=== PATIENT | male | born 1975 | race Caucasian/White ===

== ENCOUNTER 2017-04-04 05:57 | Day surgery (SDC) | payer BC ==
[2017-04-04] MEDS ORDERED: DIPRIVAN 200 MG/20 ML IV ONE (05:58)
[2017-04-04] MEDS ORDERED: Versed 2 MG/2 ML Injection IV ONE (05:58)
[2017-04-04] MEDS ORDERED: Lactated Ringers 1,000 ML IV SCH (06:00)
[2017-04-04] MEDS ORDERED: Xopenex 1.25 MG/0.5 ML UD NEBULE IH ONE (06:46)
[2017-04-04] MEDS ORDERED: Sodium Chloride 3 ML UD NEBULES IH SCH (07:00)
[2017-04-04 08:14] VITALS: BP 151/67; PULSE 65; O2SAT 98
--- NOTE | 2017-04-04 08:59 | OP ---
SURGERY DATE/TIME: 04/04/2017714 PREOPERATIVE DIAGNOSIS: Epigastric abdominal pain. POSTOPERATIVE DIAGNOSES: 1) Mild gastritis. 2) Gastric polyps. PROCEDURE: EGD. SURGEON: Bobby Dumas M.D. ANESTHESIA: MAC by Salvador Bryson CRNA. ESTIMATED BLOOD LOSS: Minimal. SPECIMENS: There are two cold forceps biopsies from the gastric antrum for Helicobacter pylori testing and two cold forceps polypectomies of gastric polyps. DESCRIPTION OF PROCEDURE: After informed written consent was obtained, the patient was taken to the endoscopy suite. He underwent monitored anesthesia and a bite block was inserted. The endoscope was inserted into the posterior oropharynx and under direct visualization the esophagus was traversed. The stomach had a normal rugated gastric mucosa with small appreciable polypoid lesions. There were mild gastritis-type changes with no focal ulcerations or bleeding in gastric antrum. The pylorus was traversed and the first and second portions of the duodenum was within normal limits. The gastric antrum sampled x2 with cold forceps with minimal blood loss. Upon further withdrawal two commercial representative gastric polyps were removed with hot forceps. The first was a small flat one which was removed in its entirety and sent for testing. The other was slightly larger, was bulbous and quite firm and difficult to grasp with the forceps but sample was taken from this lesion and sent for testing further appeared benign. The remainder the exam was within normal limits upon withdrawal.
== END 2017-04-04 08:59 | disposition home or self-care (01) ==
LOC: SDC 05:57
PROVIDERS: ATTEND Family Medicine
PROC: 0DB78ZX Excision of Stomach, Pylorus, Via Natural or Artificial Opening Endoscopic, Diagnostic (ICD-10-PCS; principal; 2017-04-04)
PROC: 0DB68ZX Excision of Stomach, Via Natural or Artificial Opening Endoscopic, Diagnostic (ICD-10-PCS; 2017-04-04)
DX: K29.70 Gastritis, unspecified, without bleeding (principal); K31.7 Polyp of stomach and duodenum; K21.9 Gastro-esophageal reflux disease without esophagitis
CPT/HCPCS: 00740; 36415; 88305; J2250; J2704

== ENCOUNTER 2023-12-08 14:54 | Emergency (ER) | payer BC ==
--- NOTE | 2023-12-08 14:56 | ERPHSYRPT ---
- History of Present Illness Time Seen by Provider: 12/08/23 14:56 Historian: patient Exam Limitations: no limitations Physician History: This is an obese 48-year-old white male who is a patient of Dr. Jimenez and presents with intermittent episodes of substernal central chest pressure and burning with radiation into the epigastric region and typically after eating. He states that the symptoms have been going on for about a year. Symptoms have been worse in the last week. Patient has no diagnosed coronary artery disease. He does not smoke. He has no documented hyperlipidemia. He has never seen a baby nurse. His gallbladder is still in place. Patient states that he has been told he has a hiatal hernia. Rarely has the pain got into his back but he does not recall an episode or to doing that. He has not noticed dark urine or acholic stools or jaundice of his skin. Patient ate tacos last night and eggs, sausage, hashbrowns this morning Timing/Duration: intermittent (Intermittent episodes over the last year), worse (Symptoms worse in the last week) Quality: burning, pressure Location: substernal, central Chest Pain Radiation: abdomen (Gastrium) Severity of Pain-Max: mild Severity of Pain-Current: mild Modifying Factors: Improves With: eating (Worsens), change in position Associated Symptoms: abdominal pain, No nausea (Gastric), No vomiting, No shortness of breath Prior Chest Pain/Cardiac Workup: no prior cardiac workup Nitro Today/Relief: no nitro taken today Aspirin Treatment Today: no aspirin today Allergies/Adverse Reactions: No Known Drug Allergies Allergy (Verified 12/08/23 14:55) Home Medications: hydroCHLOROthiazide [Hydrochlorothiazide] 25 mg PO DAILY 04/13/14 [History] Citalopram Hydrobromide [Celexa] 40 mg PO DAILY PRN 12/08/23 [History] Hx Tetanus, Diphtheria Vaccination/Date Given: No Hx Influenza Vaccination/Date Given: No Hx Pneumococcal Vaccination/Date Given: No Travel Risk - International Travel Have you traveled outside of the country in past 3 weeks: No - Emerging Infectious Disease Are you exhibiting symptoms associated with any current EIDs: No - Review of Systems Constitutional: No Symptoms Eyes: No Symptoms Ears, Nose, & Throat: No Symptoms Respiratory: No Symptoms Cardiac: Chest Pain (Scribed as a pressure and burning after eating) Abdominal/Gastrointestinal: Abdominal Pain (Mild radiation of the chest pain into his epigastrium) Genitourinary Symptoms: No Symptoms Musculoskeletal: No Symptoms Skin: No Symptoms Neurological: No Symptoms Psychological: No Symptoms Endocrine: No Symptoms Hematologic/Lymphatic: No Symptoms Immunological/Allergic: No Symptoms All Other Systems: Reviewed and Negative - Past Medical History Pertinent Past Medical History: Yes Neurological History: No Pertinent History ENT History: No Pertinent History Cardiac History: Hypertension Respiratory History: No Pertinent History Endocrine Medical History: No Pertinent History Musculoskeletal History: No Pertinent History GI Medical History: GERD History: Other Psycho-Social History: Anxiety Male Reproductive Disorders: No Pertinent History Other Medical History: ONE KIDNEY - Past Surgical History Past Surgical History: Yes Neuro Surgical History: No Pertinent History Cardiac: No Pertinent History Respiratory: No Pertinent History Gastrointestinal: No Pertinent History Genitourinary: No Pertinent History Musculoskeletal: Other Male Surgical History: No Pertinent History Other Surgical History: left arm-nerve surgery - Social History Smoking Status: Never smoker Exposure to second hand smoke: No Drug Use: none Patient Lives Alone: No - Nursing Vital Signs Nursing Vital Signs: Initial Vital Signs Temperature 97.7 F 12/08/23 14:54 Pulse Rate 68 12/08/23 14:54 Respiratory Rate 26 H 12/08/23 14:54 Blood Pressure 134/83 12/08/23 14:54 O2 Sat by Pulse Oximetry 97 12/08/23 14:54 Pain Scale Pain Intensity 4 - Physical Exam General Appearance: no apparent distress, alert, anxiety, obese Eye Exam: PERRL/EOMI, eyes nml inspection Ears, Nose, Throat Exam: normal ENT inspection, moist mucous membranes Neck Exam: normal inspection, non-tender, supple, full range of motion Respiratory Exam: normal breath sounds, chest tenderness (Scribed as a substernal, central chest pressure burning that radiates into the epigastrium), lungs clear, airway intact, No respiratory distress Cardiovascular Exam: regular rate/rhythm, normal heart sounds, normal peripheral pulses Gastrointestinal/Abdomen Exam: soft, normal bowel sounds, tenderness (Mild epigastrium), guarding, No rebound Rectal Exam: not done Back Exam: normal inspection, normal range of motion, No CVA tenderness, No vertebral tenderness Extremity Exam: normal inspection, normal range of motion, pelvis stable Neurologic Exam: alert, oriented x 3, cooperative, traffic superintendent II-XII nml as tested, normal mood/affect, nml cerebellar function, nml station & gait, sensation nml Skin Exam: normal color, warm, dry Lymphatic Exam: No adenopathy SpO2 Interpretation: normal O2 Delivery: Room Air - Course Nursing assessment & vital signs reviewed: Yes EKG Interpreted by Me: RATE (67), Sinus Rhythm, Left Melvern Deviation (Borderline), NORMAL INTERVALS, NORMAL QRS, Other (No acute ischemic changes on today's twelve-lead EKG.) Ordered Tests: Active Orders 24 hr Category Date Time Status EKG-ER Only STAT Care 12/08/23 15:07 Active IV Insertion STAT Care 12/08/23 15:07 Active CHEST WITH CONTRAST [CT] Stat Exams 12/08/23 16:23 Completed AMYLASE Stat Lab 12/08/23 15:10 Completed CBC W DIFF Stat Lab 12/08/23 15:10 Completed CMP Stat Lab 12/08/23 15:10 Completed CULTURE,URINE Stat Lab 12/08/23 15:07 Received D-DIMER QUANTITATIVE Stat Lab 12/08/23 15:10 Completed LIPASE Stat Lab 12/08/23 15:10 Completed TROPONIN Q4H Lab 12/08/23 15:10 Completed TROPONIN Q4H Lab 12/08/23 19:15 Ordered TROPONIN Q4H Lab 12/08/23 23:15 Ordered UA W/RFX UR CULTURE Stat Lab 12/08/23 15:07 Completed Medication Summary Discontinued Medications Generic Name Dose Route Start Last Admin Trade Name Freq PRN Reason Stop Dose Admin Al Hydrox/Mg Hydrox/Simethicone Confirm 12/08/23 15:24 Mag Hydrox/Al Hydrox/Simeth 30 Ml Udcup Administered 12/08/23 15:25 Dose 30 ml .ROUTE .STK-MED ONE Sodium Chloride 500 mls @ 500 mls/hr 12/08/23 16:23 12/08/23 17:51 Sodium Chloride 0.9% 500 Ml IV 12/08/23 17:22 Infused .Q1H ONE Infusion Sodium Chloride Confirm 12/08/23 16:48 Sodium Chloride 0.9% 500 Ml Administered 12/08/23 16:49 Dose 500 mls @ ud IV .STK-MED ONE Lidocaine HCl Confirm 12/08/23 15:24 Lidocaine Hcl 2% Viscous 15 Ml Udcup Administered 12/08/23 15:25 Dose 15 ml .ROUTE .STK-MED ONE Magnesium Hydroxide 45 ml 12/08/23 15:08 12/08/23 15:25 Mag Hydrx/Alum Hyd/Simeth/Lido 45 Ml Bottle PO 12/08/23 15:09 45 ml STAT ONE Administration Pantoprazole Sodium 40 mg 12/08/23 15:16 12/08/23 15:25 Pantoprazole 40 Mg Vial IV 12/08/23 15:17 40 mg STAT ONE Administration Pantoprazole Sodium Confirm 12/08/23 15:24 Pantoprazole 40 Mg Vial Administered 12/08/23 15:25 Dose 40 mg IV .K-MED ONE Lab/Rad Data: Laboratory Result Diagrams 12/08/23 15:10 12/08/23 15:10 Laboratory Results 12/08/23 12/08/23 12/08/23 Range/Units 15:10 15:10 15:10 WBC (4.0-10.5) x10^3/uL RBC (4.1-5.6) x10^6/uL Hgb (12.5-18.0) g/dL Hct (42-50) % MCV (78-100) fL MCH (26-32) pg MCHC (32-36) g/dL RDW (11.5-14.0) % Plt Count (150-450) x10^3/uL MPV (7.5-11.0) fL Gran % (36.0-66.0) % Immature Gran % (Auto) (0.00-0.4) % Nucleat RBC Rel Count (0.00-0.1) % Eos # (Auto) (0-0.5) x10^3/uL Immature Gran # (Auto) (0.00-0.03) x10^3u/L Absolute Lymphs (auto) (1.0-4.6) x10^3/uL Absolute Monos (auto) (0.0-1.3) x10^3/uL Absolute Nucleated RBC (0.00-0.01) x10^3u/L Lymphocytes % (24.0-44.0) % Monocytes % (0.0-12.0) % Eosinophils % (0.00-5.0) % Basophils % (0.0-0.4) % Absolute Granulocytes (1.4-6.9) x10^3/uL Basophils # (0-0.4) x10^3/uL D-Dimer 0.52 H (0.0-0.50) mg/L Sodium 139 (135-145) mmol/L Potassium 3.7 (3.5-5.1) mmol/L Chloride 103 (98-107) mmol/L Carbon Dioxide 29 (22-30) mmol/L Anion Gap 11.4 (5-15) MEQ/L BUN 12 (9-20) mg/dL Creatinine 1.08 (0.66-1.25) mg/dL Estimated GFR 83.6 ML/MIN Glucose 117 H (74-106) mg/dL Calcium 9.0 (8.4-10.2) mg/dL Total Bilirubin 0.50 (0.2-1.3) mg/dL AST 39 (17-59) U/L ALT 35 (0-50) U/L Alkaline Phosphatase 81 (38-126) U/L Troponin I < 0.012 (0.000-0.033) ng/mL Serum Total Protein 7.6 (6.3-8.2) g/dL Albumin 3.9 (3.5-5.0) g/dL Amylase 73 (30-110) U/L Lipase 160 (23-300) U/L Urine Color (Yellow) Urine Appearance (Clear) Urine pH (4.6-8.0) Ur Specific [employer] (1.005-1.030) Urine Protein (Negative) Urine Glucose (UA) (Negative) mg/dL Urine Ketones (Negative) Urine Blood (Negative) Urine Nitrite (Negative) Urine Bilirubin (Negative) Urine Urobilinogen (0.2) mg/dL Ur Leukocyte Esterase (Negative) U Hyaline Cast (Auto) (0-2) /LPF Urine Microscopic RBC (0-5) /HPF Urine Microscopic WBC (0-5) /HPF Ur Epithelial Cells (None Seen) /HPF Urine Bacteria (None Seen) /HPF Urine Culture Reflexed (NO) 12/08/23 12/08/23 Range/Units 15:10 15:07 WBC 4.2 (4.0-10.5) x10^3/uL RBC 4.84 (4.1-5.6) x10^6/uL Hgb 14.2 (12.5-18.0) g/dL Hct 42.0 (42-50) % MCV 86.8 (78-100) fL MCH 29.3 (26-32) pg MCHC 33.8 (32-36) g/dL RDW 12.2 (11.5-14.0) % Plt Count 227 (150-450) x10^3/uL MPV 10.6 (7.5-11.0) fL Gran % 57.9 (36.0-66.0) % Immature Gran % (Auto) 0.2 (0.00-0.4) % Nucleat RBC Rel Count 0.0 (0.00-0.1) % Eos # (Auto) 0.04 (0-0.5) x10^3/uL Immature Gran # (Auto) 0.01 (0.00-0.03) x10^3u/L Absolute Lymphs (auto) 1.32 (1.0-4.6) x10^3/uL Absolute Monos (auto) 0.39 (0.0-1.3) x10^3/uL Absolute Nucleated RBC 0.00 (0.00-0.01) x10^3u/L Lymphocytes % 31.4 (24.0-44.0) % Monocytes % 9.3 (0.0-12.0) % Eosinophils % 1.0 (0.00-5.0) % Basophils % 0.2 (0.0-0.4) % Absolute Granulocytes 2.44 (1.4-6.9) x10^3/uL Basophils # 0.01 (0-0.4) x10^3/uL D-Dimer (0.0-0.50) mg/L Sodium (135-145) mmol/L Potassium (3.5-5.1) mmol/L Chloride (98-107) mmol/L Carbon Dioxide (22-30) mmol/L Anion Gap (5-15) MEQ/L BUN (9-20) mg/dL Creatinine (0.66-1.25) mg/dL Estimated GFR ML/MIN Glucose (74-106) mg/dL Calcium (8.4-10.2) mg/dL Total Bilirubin (0.2-1.3) mg/dL AST (17-59) U/L ALT (0-50) U/L Alkaline Phosphatase (38-126) U/L Troponin I (0.000-0.033) ng/mL Serum Total Protein (6.3-8.2) g/dL Albumin (3.5-5.0) g/dL Amylase (30-110) U/L Lipase (23-300) U/L Urine Color Yellow (Yellow) Urine Appearance Clear (Clear) Urine pH 6.5 (4.6-8.0) Ur Specific [employer] 1.015 (1.005-1.030) Urine Protein Negative (Negative) Urine Glucose (UA) Negative (Negative) mg/dL Urine Ketones Negative (Negative) Urine Blood Negative (Negative) Urine Nitrite Negative (Negative) Urine Bilirubin Negative (Negative) Urine Urobilinogen 1.0 A (0.2) mg/dL Ur Leukocyte Esterase Negative (Negative) U Hyaline Cast (Auto) NONE SEEN (0-2) /LPF Urine Microscopic RBC 0-2 (0-5) /HPF Urine Microscopic WBC 0-2 (0-5) /HPF Ur Epithelial Cells None Seen (None Seen) /HPF Urine Bacteria None Seen (None Seen) /HPF Urine Culture Reflexed NO (NO) - Progress Progress: improved, re-examined Air Movement: good Progress Note: 12/08/23 15:15 My medical decision making and the assignment of moderate complexity to today's medical condition in this patient is based on review of the patient's past medical history, review of the patient's medication list, review of the patient's drug allergy list, history present illness and physical findings on examination. The workup in this patient includes placement of intravenous line, infusion of normal saline solution, infusion of Protonix, provision of GI cocktail, CBC, CMP, D-dimer, troponin level, amylase and lipase as well as urinalysis. 12/08/23 15:16 Differential diagnosis includes acute cholecystitis, symptomatic cholelithiasis, myocardial infarction, pulmonary embolus, electrolyte abnormalities, arrhythmias 12/08/23 18:41 Patient reexamined. No further chest pain. CT scan of the chest with contrast was interpreted by the radiologist and I reviewed the impression. The impression states no detected pulmonary embolus. There is mild emphysematous changes, there is spondylosis of his dorsal vertebra. There is enlarged mediastinal lymph nodes. There is multiple hepatic cysts. Ultrasound correlation recommended. These findings were discussed in detail with the patient and his spouse. Blood Culture(s) Obtained: No Antibiotics given: No Counseled pt/family regarding: lab results, diagnosis, need for follow-up Medical Desision Making - Independent Historian Additional History obtained from: Spouse - Diagnostic Testing Diagnostic test were ordered, analyzed, and reviewed by me: Yes Radiological Interpretation: Reviewed by me, Teleradiologist Report - Risk of complications Low Risk: Low risk of morbidity from additional dx testing or treatment - Departure Departure Disposition: Home Clinical Impression: Nonspecific chest pain, Lymph nodes enlarged, Hepatic cyst Condition: Stable Critical Care Time: No Referrals: MARIVEL JIMENEZ MD [Primary Care Provider] - Follow up/PCP as directed Additional Instructions: Drink plenty of fluids. Take your medication as prescribed. Follow-up with your primary care provider on 12/10/2023 for further evaluation of your epigastric and chest pain symptoms. In addition discussed with your primary care provider the findings on the CT scan of enlarged mediastinal lymph nodes and multiple hepatic cysts. Make arranges to be seen within the next 3 to 5 days.
[2023-12-08 15:06] VITALS: TEMP 97.7
[2023-12-08 15:16] LABS: Absolute Neutrophil Ct (ANC) 2.44 x10^3/uL (1.4-6.9); BASOPHIL % 0.2 % (0.0-0.4); Basophil (Absolute #) 0.01 x10^3/uL (0-0.4); Eosinophil (Absolute #) 0.04 x10^3/uL (0-0.5); Hemoglobin 14.2 g/dL (12.5-18.0); IMMATURE GRAN # 0.01 x10^3u/L (0.00-0.03); IMMATURE GRAN % 0.2 % (0.00-0.4); Lymphocyte (Absolute #) 1.32 x10^3/uL (1.0-4.6); Lymphocytes % 31.4 % (24.0-44.0); Mean Cell Volume 86.8 fL (78-100); Mean Corpuscular Hemoglobin 29.3 pg (26-32); Mean Corpuscular Hgb Concent. 33.8 g/dL (32-36); Mean Platelet Volume 10.6 fL (7.5-11.0); Monocyte (Absolute #) 0.39 x10^3/uL (0.0-1.3); Monocytes % 9.3 % (0.0-12.0); Neutrophil % 57.9 % (36.0-66.0); Platelet Count 227 x10^3/uL (150-450); Red Blood Count 4.84 x10^6/uL (4.1-5.6); Red Cell Distribution Width 12.2 % (11.5-14.0); White Blood Count 4.2 x10^3/uL (4.0-10.5)
[2023-12-08] MEDS ORDERED: MAALOX ES 30 ML UNIT DOSE ONE (15:24)
[2023-12-08] MEDS ORDERED: PROTONIX 40 MG IV IV ONE (15:24)
[2023-12-08] MEDS ORDERED: XYLOCAINE VISCOUS 2% 15 ML CUP ONE (15:24)
[2023-12-08] MEDS: PROTONIX 40 MG IV IV ONE (15:25)
[2023-12-08] MEDS: GI COCKTAIL 45 ML (Maalox/Lidocaine) PO ONE (15:25)
[2023-12-08 15:28] LABS: ALBUMIN 3.9 g/dL (3.5-5.0); ANION GAP 11.4 MEQ/L (5-15); BILIRUBIN,TOTAL 0.5 mg/dL (0.2-1.3); Creatinine 1 1.08 mg/dL (0.66-1.25); EST GLOMERULAR FILTRATION RATE 83.6 ML/MIN; Potassium 3.7 mmol/L (3.5-5.1); Total Protein 7.6 g/dL (6.3-8.2)
[2023-12-08 16:20] LABS: Appearance Clear (Clear); Bacteria None Seen /HPF (None Seen); Bilirubin Negative (Negative); Blood Negative (Negative); Epithelial Cells None Seen /HPF (None Seen); Glucose, Urine Negative (Negative); Hyaline Casts NONE SEEN /LPF (0-2); Ketones Negative (Negative); Leukocyte Esterase Negative (Negative); Nitrite Negative (Negative); Ph 6.5 (4.6-8.0); Protein,Urine Dip Negative (Negative); RBC 0-2 /HPF (0-5); Specific Gravity 1.015 (1.005-1.030); WBC 0-2 /HPF (0-5)
[2023-12-08 16:23] LABS: ADD URINE CULTURE? NO (NO)
[2023-12-08] MEDS: Sodium Chloride 0.9% 500 ML 500 ML IV ONE (16:48)
[2023-12-08] MEDS ORDERED: Sodium Chloride 0.9% 500 ML 500 ML IV ONE (16:48)
--- NOTE | 2023-12-08 18:33 | XRAY ---
CLINICAL HISTORY: Chest pain; elevated D-dimer COMPARISON: None. TECHNIQUE: Contiguous axial CT images of the chest were acquired with administration of intravenous contrast following PE protocol. Coronal and sagittal reconstructions were also obtained. One of the following dose reduction techniques was utilized for this exam: Automated exposure control, adjustment of the mA and/or kV according to patient size, and use of iterative reconstruction. FINDINGS: Normal main pulmonary artery and the left and right main pulmonary trunks. No detected pulmonary embolism. Bilateral basal lower and middle lung lobes showing small subpleural emphysematous bullae. The scanned pulmonary parenchyma shows no definite consolidative lesions. No free or encysted pleural effusion. Heart size is normal, and there is no pericardial effusion. Multiple mediastinal lymph nodes are noted, the largest pretracheal measures about 1.5x1.3 cm at 20/77. There is no definite mass lesion in the chest wall. Spondylosis of the dorsal vertebrae. Scanned upper abdomen is showing multiple hepatic hypodesne lesions, the largest measures about 1.5x1.3 cm, likely hepatic cysts. IMPRESSION: No detected pulmonary embolism Bilateral mild emphysematous changes. Spondylosis of the dorsal vertebrae. Mediastinal enlarged lymph nodes. Multiple hepatic cysts. For ultrasound correlation. Electronically Signed by: Holger Marinelli MD. (12/08/2023 18:29:40 EDT)
[2023-12-08 19:21] VITALS: BP 145/100; PULSE 80; RESP 17; O2SAT 98
== END 2023-12-08 19:21 | disposition home or self-care (01) ==
LOC: ED 14:54
DX: R07.89 Other chest pain (principal); R59.0 Localized enlarged lymph nodes; K76.89 Other specified diseases of liver; I10 Essential (primary) hypertension; Z79.899 Other long term (current) drug therapy
CPT/HCPCS: 36000; 36415; 71260; 80053; 81001; 82150; 83690; 84484; 85025; 85379; 87086; 93005; 96374; 99284; A9270-GY

== ENCOUNTER 2024-06-30 19:43 | Emergency (ER) | payer BC ==
--- NOTE | 2024-06-30 19:55 | ERPHSYRPT ---
- History of Present Illness Time Seen by Provider: 06/30/24 19:54 Source: patient, family Exam Limitations: no limitations Physician History: This is an obese 48-year-old white male patient of Dr. Jimenez who presents to the emergency department by private vehicle accompanied by his with the complaint of coughing intermittently for 3 weeks. Yesterday he began having bodyaches and today there was an associated fever of 101 F. The intermittent, dry coughing has persisted. Patient did take an antipyretic at noon today. Patient arrives to the emergency department with a temperature of 98.9 and a room air oxygen saturation level 93%. He has no chest pain. He has no abdominal pain. He has no nausea vomiting or diarrhea symptoms. He does have a history of depression, hypertension and gastroesophageal reflux disease Timing/Duration: week(s) (3) Cough Quality/Degree: moderate, dry cough Possible Cause: no prior episodes Modifying Factors: Improves With: coughing Associated Symptoms: fever, cough, muscle aches, sore throat, No chest pain/soreness, No earache, No shortness of breath, No wheezing Allergies/Adverse Reactions: No Known Drug Allergies Allergy (Verified 12/08/23 14:55) Home Medications: hydroCHLOROthiazide [Hydrochlorothiazide] 25 mg PO DAILY 04/13/14 [History] Citalopram Hydrobromide [Celexa] 40 mg PO DAILY PRN 12/08/23 [History] Hx Tetanus, Diphtheria Vaccination/Date Given: No Hx Influenza Vaccination/Date Given: No Hx Pneumococcal Vaccination/Date Given: No Travel Risk - International Travel Have you traveled outside of the country in past 3 weeks: No - Emerging Infectious Disease Are you exhibiting symptoms associated with any current EIDs: Yes Symptoms: Cough: New Onset, Headaches/Body Aches/ - Review of Systems Constitutional: Fever Eyes: No Symptoms Ears, Nose, & Throat: Throat Pain Respiratory: Cough Cardiac: No Symptoms Abdominal/Gastrointestinal: No Symptoms Genitourinary Symptoms: No Symptoms Musculoskeletal: Arthralgias, Myalgias Skin: No Symptoms Neurological: No Symptoms Psychological: No Symptoms Endocrine: No Symptoms Hematologic/Lymphatic: No Symptoms Immunological/Allergic: No Symptoms All Other Systems: Reviewed and Negative - Past Medical History Pertinent Past Medical History: Yes Neurological History: No Pertinent History ENT History: No Pertinent History Cardiac History: Hypertension Respiratory History: No Pertinent History Endocrine Medical History: No Pertinent History Musculoskeletal History: No Pertinent History GI Medical History: GERD History: Other Psycho-Social History: Anxiety Male Reproductive Disorders: No Pertinent History Other Medical History: ONE KIDNEY - Past Surgical History Past Surgical History: Yes Neuro Surgical History: No Pertinent History Cardiac: No Pertinent History Respiratory: No Pertinent History Gastrointestinal: No Pertinent History Genitourinary: No Pertinent History Musculoskeletal: Other Male Surgical History: No Pertinent History Other Surgical History: left arm-nerve surgery - Social History Smoking Status: Never smoker Exposure to second hand smoke: No Drug Use: none Patient Lives Alone: No - Social Determinants of Health Will the patient participate in the screening: Yes Do you worry about a steady place to live?: No In the past 12 months,have you had to go without utilities?: No Transportation Issues: No Has anyone in your support network made you feel unsafe?: No Have you or anyone in your house had to go without enough: No - Nursing Vital Signs Nursing Vital Signs: Initial Vital Signs Temperature 98.9 F 06/30/24 20:02 Pulse Rate 102 H 06/30/24 20:02 Respiratory Rate 18 06/30/24 20:02 Blood Pressure 117/84 06/30/24 20:02 O2 Sat by Pulse Oximetry 93 L 06/30/24 20:02 Pain Scale Pain Intensity 5 - Physical Exam General Appearance: no apparent distress, alert, anxiety, obese Eye Exam: PERRL/EOMI, eyes nml inspection Ears, Nose, Throat Exam: normal ENT inspection, moist mucous membranes Neck Exam: normal inspection, non-tender, supple, full range of motion Respiratory Exam: normal breath sounds, lungs clear, airway intact, No chest tenderness, No respiratory distress Cardiovascular Exam: regular rate/rhythm, normal heart sounds, normal peripheral pulses Gastrointestinal/Abdomen Exam: soft, normal bowel sounds, No tenderness Rectal Exam: not done Back Exam: normal inspection, normal range of motion, vertebral tenderness, No CVA tenderness Extremity Exam: normal inspection, normal range of motion, pelvis stable Neurologic Exam: alert, oriented x 3, cooperative, 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 tested, normal mood/affect, nml cerebellar function, nml station & gait, sensation nml Skin Exam: normal color, warm, dry Lymphatic Exam: No adenopathy SpO2 Interpretation: normal O2 Delivery: Room Air - Course Nursing assessment & vital signs reviewed: Yes Ordered Tests: Active Orders 24 hr Category Date Time Status CHEST 1 VIEW (PORTABLE) Stat Exams 06/30/24 20:27 Ordered Medication Summary Discontinued Medications Generic Name Dose Route Start Last Admin Trade Name Francie PRN Reason Stop Dose Admin Hydrocodone Bitart/Acetaminophen 15 ml 06/30/24 20:27 06/30/24 20:46 Hydrocodone/Acetaminophen 5 Ml Udcup PO 06/30/24 20:28 15 ml STAT STA Administration Hydrocodone Bitart/Acetaminophen Confirm 06/30/24 20:43 Hydrocodone/Acetaminophen 5 Ml Udcup Administered 06/30/24 20:44 Dose 10 ml .ROUTE .STK-MED ONE Hydrocodone Bitart/Acetaminophen Confirm 06/30/24 20:46 Hydrocodone/Acetaminophen 5 Ml Udcup Administered 06/30/24 20:47 Dose 5 ml .ROUTE .STK-MED ONE Methylprednisolone Sodium 0 mg 06/30/24 20:28 06/30/24 20:49 Succinate 125 mg/ Sterile IM 06/30/24 20:29 125 mg Water 2 ml STAT ONE Administration Methylprednisolone Sodium Succinate Confirm 06/30/24 20:43 Methylprednis Sod Succ 125 Mg/2 Ml Vial Administered 06/30/24 20:44 Dose 125 mg .ROUTE .STK-MED ONE Sterile Water Confirm 06/30/24 20:43 Water For Injection,Sterile 10 Ml Vial Administered 06/30/24 20:44 Dose 10 ml IJ .STK-MED ONE Lab/Rad Data: Laboratory Results 06/30/24 06/30/24 Range/Units 20:32 20:32 Influenza Type A Ag NEGATIVE (NEGATIVE) Influenza Type B Ag NEGATIVE (NEGATIVE) RSV (PCR) NEGATIVE (NEGATIVE) SARS-CoV-2 (PCR) NEGATIVE (NEGATIVE) Group A Strep Antibody NOT DETECTED (NEGATIVE) - Progress Progress: improved, re-examined Air Movement: good Progress Note: 06/30/24 20:54 My medical decision making and the assignment of low to moderate complexity is based on review of the patient's past medical history, review the patient's medication list, reviewed patient drug allergy list, history present illness and physical findings on examination. The workup in this patient includes viral swabs, group A strep test, chest x-ray, provision of hydrocodone elixir and intramuscular Solu-Medrol. Differential diagnosis includes but is not limited to upper respiratory infection, viral illness, pneumonia, group A strep pharyngitis 06/30/24 21:21 I interpreted the preliminary report of the chest x-ray performed. There is borderline cardiomegaly. There is no evidence of any acute cardiopulmonary process. I interpreted the laboratory data results. Based on the laboratory data results, there are no acute, emergent medical issues. Blood Culture(s) Obtained: No Antibiotics given: Yes Counseled pt/family regarding: lab results, diagnosis, need for follow-up Medical Desision Making - Independent Historian Additional History obtained from: Spouse - Diagnostic Testing Diagnostic test were ordered, analyzed, and reviewed by me: Yes Radiological Interpretation: Interpreted by me - Risk of complications Low Risk: Low risk of morbidity from additional dx testing or treatment - Departure Departure Disposition: Home Clinical Impression: Upper respiratory infection Condition: Stable Critical Care Time: No Referrals: MARIVEL JIMENEZ MD [Primary Care Provider] - Follow up/PCP as directed Additional Instructions: Drink plenty of fluids. Take your medications as prescribed. Call your primary care provider tomorrow, 07/01/2024, to make arrangements for follow-up appointment for further evaluation and management and to be seen in the next 3 to 5 days. Prescriptions: Prednisone 10 mg [Deltasone 10 mg] 10 mg PO TID #12 tablet Hydrocodone/Acetaminophen [Hydrocodone-Acetamn 7.5-325/15] 10 ml PO Q8H PRN #120 ml MDD 30 ml PRN Reason: Cough Azithromycin 250 mg [Zithromax 250 MG TABLET] 250 mg PO ZPACK #6 tablet
[2024-06-30 20:16] VITALS: TEMP 98.9
[2024-06-30] MEDS ORDERED: HYDROCODONE-ACETAMIN 2.5-108/5 ML SOLUTION ONE ×3 (20:43→21:34)
[2024-06-30] MEDS ORDERED: solu-MEDROL ONE (20:43)
[2024-06-30] MEDS ORDERED: Sterile H2O 10 ml IJ ONE (20:43)
[2024-06-30] MEDS: HYDROCODONE-ACETAMIN 2.5-108/5 ML SOLUTION PO STA ×2 (20:46→21:37)
[2024-06-30] MEDS: solu-MEDROL 125 MG, Sterile H2O 10 ml 2 ML IM ONE (20:49)
[2024-06-30 21:12] LABS: INFLUENZA A NEGATIVE (NEGATIVE); INFLUENZA B NEGATIVE (NEGATIVE); RESPIRATORY SYNCTIAL VIRUS NEGATIVE (NEGATIVE); SARS-CoV-2 Xpert Express NEGATIVE (NEGATIVE)
[2024-06-30] MEDS ORDERED: Rocephin 1000 MG INJ ONE (21:30)
[2024-06-30] MEDS ORDERED: XYLOCAINE 1% HCL 20 ML MDV ONE (21:30)
[2024-06-30] MEDS: Rocephin 1000 MG INJ IM ONE (21:34)
[2024-06-30 21:42] VITALS: BP 129/82; PULSE 70; RESP 20; O2SAT 97
--- NOTE | 2024-07-01 09:00 | XRAY ---
Indication: Fever and cough. Comparison: April 13, 2014 Portable apical lordotic chest now demonstrates left hemidiaphragm elevation with adjacent subsegmental atelectasis. Remaining heart and right lung unremarkable. Bony thorax intact. No acute findings.
== END 2024-06-30 21:43 | disposition home or self-care (01) ==
LOC: ED 19:43
DX: J06.9 Acute upper respiratory infection, unspecified (principal); R50.9 Fever, unspecified; R05.2 Subacute cough; M79.10 Myalgia, unspecified site; I10 Essential (primary) hypertension; Z79.891 Long term (current) use of opiate analgesic; Z79.52 Long term (current) use of systemic steroids; Z79.899 Other long term (current) drug therapy
CPT/HCPCS: 0241U; 71045; 87651; 96372; 99285; 99284; J0696; J2919; A9270-GY